=== PATIENT | female | born 1950 | race Two or more races ===

== ENCOUNTER → 2017-12-27 | Outpatient (CLI) | payer MEDICAID, OTHER ==
[2017-12-27 07:56] LABS: BASO # 0.1 x10^3/uL (0.0-0.2); BASO % 1 % (0-3); EOS # 0.3 x10^3/uL (0.0-0.7); EOS % 3 % (0-3); HEMATOCRIT 42.7 % (36.0-47.0); HEMOGLOBIN 14.6 g/dL (12.0-15.5); LYMPH # 2.3 x10^3/uL (1.0-4.8); LYMPH % 27 % (24-48); MEAN CORPUSCULAR HEMOGLOBIN 29 pg (25-35); MEAN CORPUSCULAR HGB CONC 34 g/dL (31-37); MEAN CORPUSCULAR VOLUME 84 fL (79-100); MONO # 0.9 x10^3/uL (0.0-1.1); MONO % 10 % (0-9); NEUT # 5.2 x10^3uL (1.8-7.7); NEUT % 60 % (31-73); PLATELET COUNT 244 x10^3/uL (140-400); RED BLOOD COUNT 5.11 x10^6/uL (3.50-5.40); RED CELL DISTRIBUTION WIDTH 13.9 % (11.5-14.5); WHITE BLOOD COUNT 8.7 x10^3/uL (4.0-11.0)
[2017-12-27 08:04] LABS: ALBUMIN 3.3 g/dL (3.4-5.0); ALBUMIN/GLOBULIN RATIO 0.9 (1.0-1.7); CALCIUM 8.7 mg/dL (8.5-10.1); CREATININE 0.8 mg/dL (0.6-1.0); POTASSIUM 3.2 mmol/L (3.5-5.1); TOTAL BILIRUBIN 0.4 mg/dL (0.2-1.0)
[2017-12-27 08:07] LABS: BILIRUBIN,URINE NEGATIVE (NEG); CHOLESTEROL/HDL RATIO 3.8; CLARITY,URINE CLEAR; COLOR,URINE YELLOW; NITRITE,URINE NEGATIVE (NEG); PROTEIN,URINE NEGATIVE (NEG-TRACE); UROBILINOGEN,URINE 0.2 mg/dL (0.2 mg/dL)
[2017-12-27 08:25] LABS: BACTERIA,URINE MODERATE /HPF (0-FEW); RBC,URINE OCC /HPF (0-2); SQUAMOUS EPITHELIAL CELL,UR MOD /LPF; WBC,URINE 20-40 /HPF (0-4)
[2017-12-27 16:19] LABS: HEMOGLOBIN A1C 5.6 % (4.8-5.6)
--- NOTE | 2017-12-27 16:29 | RAD ---
Complete abdominal ultrasound 12/27/2017 7:17 AM Clinical History: Right upper quadrant pain Technique: Ultrasound examination of the abdomen was performed, and multiple static images were submitted for review. Comparison: None available Findings: The visualized portions of the pancreas are within normal limits. The visualized aorta and IVC are unremarkable. The gallbladder is surgically absent.. The common bile duct measures 9 mm in diameter which is nonspecific and prior removal of the gallbladder. The liver measures 17 cm longitudinally which is normal. The liver is normal in echotexture. No intrahepatic biliary ductal dilatation is seen. No focal hepatic lesions are identified. The spleen is normal in appearance measuring 11.4 cm. The bilateral kidneys are normal in appearance without evidence of obstructive uropathy, nephrolithiasis, or focal renal lesion. Right kidney measures 10.1 in length. Left kidney measures 11.2 cm in length. Impression: 1. Prior cholecystectomy 2. Common bile duct measures 9 mm in length. Finding is nonspecific but commonly reflects reservoir effect following removal of the gallbladder. If there is concern for acute obstructive process, correlation with serum bilirubin levels recommended. Electronically signed by: Damion Cavazos MD (12/27/2017 4:25 PM) [id number]
== END | disposition home or self-care (01) ==
LOC: US 06:54
PROVIDERS: ATTEND Internal Medicine
DX: R10.11 Right upper quadrant pain (principal); Z90.49 Acquired absence of other specified parts of digestive tract
CPT/HCPCS: 76700; 80053; 80061; 81001; 83036; 85025; 87086